=== PATIENT | male | born 1960 | race Hispanic/Latino ===

== ENCOUNTER 2021-03-04 16:43 | Emergency (ER) | payer SELFPAY ==
[2021-03-04] MEDS ORDERED: EPINEPHrine 1 MG/10 ML SYRINGE ONE (16:45)
[2021-03-04] MEDS ORDERED: SODIUM BICARB 8.4% 50 MEQ/50 ML SYRINGE IV ONE (16:45)
--- NOTE | 2021-03-04 16:58 | Emergency Department Report ---
HPI - General Time Seen by Provider: 03/04/21 16:53 - HPI HPI: Room 21 Patient is a 61-year-old male present with a chief complaint of cardiac arrest. Per EMS the patient was witnessed arrest. 911 was called and EMS arrived at the [facility] at 16: 0 to find the patient in asystole. ACLS protocols were initiated and the patient was intubated by EMS. Three rounds of epi and one sodium bicarb were administered by EMS prior to arrival. Upon arrival to the ED the ET tube was confirmed by use of a glidescope and ACLS protocols were continued but there was no return of spontaneous circulation. Patient ED Past Medical Hx - Past Medical History Hx Hypertension: Yes Hx Arthritis: Yes Additional medical history: bipolar, manic depression, parkinson, ptsd, - Surgical History Additional Surgical History: double hernia surgery - Family History Family history: no significant - Social History Smoking Status: Unknown if ever smoked Substance Use Type: None - Medications Home Medications: Home Medications Medication Instructions Recorded Confirmed Last Taken Type Ciprofloxacin HCl [Cipro] 250 mg PO BID 3 Days #6 tablet 05/01/18 Unknown Rx Ciprofloxacin HCl [Cipro] 500 mg PO BID #14 tablet 05/05/18 Unknown Rx Tamsulosin HCl [Flomax] 0.4 mg PO QHS #7 cap.er.24h 05/05/18 Unknown Rx ED Review of Systems ROS: Stated complaint: CARDIAC ARREST Other details as noted in HPI Comment: Unobtainable due to pts medical conditions Physical Exam - Physical Exam Physical Exam: GENERAL: The patient is well-developed well-nourished male lying on stretcher receiving chest compressions being bagged via ET tube. [] HEENT: Normocephalic. Atraumatic. NECK: Trachea midline CHEST/LUNGS: No spontaneous respirations. Breath sounds equal with bagging bilateral HEART/CARDIOVASCULAR: No heart sounds. Asystole on the monitor ABDOMEN: Abdomen soft SKIN: There is no rash. There is no edema. There is no diaphoresis. NEURO: GCS 3 T MUSCULOSKELETAL: There is no evidence of acute injury. ED Medical Decision Making - Differential Diagnosis Cardiac arrest Critical care attestation.: If time is entered above; I have spent that time in minutes in the direct care of this critically ill patient, excluding procedure time. ED Disposition Clinical Impression: Cardiac arrest Disposition: 20 Is pt being admited?: No Does the pt Need Aspirin: No Condition: Poor Time of Disposition: 16:54 (Patient )
== END 2021-03-04 17:00 ==
LOC: ED 16:43
DX: I46.9 Cardiac arrest, cause unspecified (principal); I10 Essential (primary) hypertension; F31.9 Bipolar disorder, unspecified; F43.10 Post-traumatic stress disorder, unspecified
CPT/HCPCS: 99285; J0171